=== PATIENT | male | born 1960 | race Caucasian/White ===

== ENCOUNTER 2020-02-13 07:15 | Day surgery (SDC) | payer OTHER ==
[~2020-02-13] VITALS: Ht 172.7 cm; Wt 99.3 kg
[2020-02-13 09:28] VITALS: BP 128/84
[2020-02-13 14:32] VITALS: BP 116/81
== END 2020-02-13 14:25 | disposition home or self-care (01) ==
LOC: GI 07:15 → OR 14:00 → GI 14:25
PROVIDERS: ATTEND Internal Medicine Gastroenterology
DX: Z12.11 Encounter for screening for malignant neoplasm of colon (principal); I85.00 Esophageal varices without bleeding; K76.6 Portal hypertension; I10 Essential (primary) hypertension; E03.9 Hypothyroidism, unspecified; R73.03 Prediabetes; Z86.19 Personal history of other infectious and parasitic diseases; Z79.899 Other long term (current) drug therapy; Z86.39 Personal history of other endocrine, nutritional and metabolic disease
CPT/HCPCS: 43235; 45378; J1200; J1610; J2250; J2310; J3010; J3490